=== PATIENT | male | born 1980 | race Caucasian/White ===

== ENCOUNTER 2017-02-06 02:54 | Emergency (ER) | payer BC ==
[2017-02-06 02:55] VITALS: BP 139/90; PULSE 73; RESP 16; TEMP 99; O2SAT 98
[2017-02-06 03:24] LABS: BLOOD, URINE NEG (NEG); GLUCOSE,URINE NEG (NEG); KETONE, URINE NEG (NEG); NITRITE,URINE NEG (NEG); PH, URINE 5.5 (5.0-8.5); URINE COLOR LIGHT-YELLOW (YELLW/STRAW)
[2017-02-06 03:25] LABS: COMMENT (UR) CULT NOT INDICATED; CULTURE IF INDICATED CULT NOT INDICATED
[2017-02-06] MEDS ORDERED: DICL75TA PO (03:37)
[2017-02-06] MEDS ORDERED: DOXY1CAP74 PO (03:37)
[2017-02-06] MEDS ORDERED: PAXI10TA2 PO (03:37)
[2017-02-06] MEDS ORDERED: DOXY100C PO (03:51)
[2017-02-06] MEDS ORDERED: DIAZ5 PO (03:51)
[2017-02-06] MEDS ORDERED: PHEN0.4T PO (03:51)
--- NOTE | 2017-02-06 03:52 | PD ---
HPI Chief Complaint: Complaint Time Seen by Provider: 03:37 Travel History International Travel<30 days: No Contact w/Intl Traveler<30days: No Traveled to known affect area: No History of Present Illness HPI Patient's 36 years old. He arrives complaining of urinary frequency and dysuria for about a day and a half. He states it has become quite painful for him such that he cannot find a position of comfort other than pacing around. He 's had no fever nausea vomiting or diarrhea. He denies abdominal pain. There is no testicular pain. Bowel movements have been normal. No blood in the urine or penile discharge reported. He reports unprotected sex with 2 partners over the last few months although thinks it's unlikely that he might actually have a UTI. He reports following up an urgent care clinic several days ago where he was pleased to have a UTI however urine culture came back negative. He completed a Bactrim course. He's been unable sleep on account of the discomfort. PFSH Past Medical History Medical History: Denies Significant Hx Diminished Hearing: No Past Surgical History Surgical History: No Previous Surgery Social History Alcohol Use: No (SOCIALLY ) Tobacco Use: No Substance Use: No Allergies-Medications (Allergen,Severity, Reaction): Coded Allergies: No Known Allergies (Unverified , 02/06/17) Reported Meds & Prescriptions Reported Meds & Active Scripts Active Valium (Diazepam) 5 Mg Tab 5 Mg PO HS PRN Doxycycline Hyclate 100 Mg Cap 100 Mg PO BID Pyridium (Phenazopyridine HCl) 100 Mg Tab 100 Mg PO Q8H PRN 2 Days Reported Diclofenac Sodium DR (Diclofenac Sodium) 75 Mg Tabdr 75 Mg PO BID Paxil (Paroxetine HCl) 10 Mg Tab 10 Mg PO DAILY Doxycycline 40 Mg Cap 100 Mg PO BID Review of Systems Except as stated in HPI: all other systems reviewed are Neg Physical Exam Narrative GENERAL: 36-year-old male well-nourished well-developed GENITOURINARY: There is no testicular mass tenderness. There is no penile discharge. Glans appears normal. There is no perineal tenderness or crepitus. SKIN: Focused skin assessment warm/dry. HEAD: Atraumatic. Normocephalic. EYES: Pupils equal and round. No scleral icterus. No injection or drainage. ENT: No nasal bleeding or discharge. Mucous membranes pink and moist. NECK: Trachea midline. No JVD. CARDIOVASCULAR: Regular rate and rhythm. No murmur appreciated. RESPIRATORY: No accessory muscle use. Clear to auscultation. Breath sounds equal bilaterally. GASTROINTESTINAL: Abdomen soft, non-tender, nondistended. Hepatic and splenic margins not palpable. No flank pain. MUSCULOSKELETAL: No obvious deformities. No clubbing. No cyanosis. No edema. NEUROLOGICAL: Awake and alert. No obvious cranial nerve deficits. Motor grossly within normal limits. Normal speech. PSYCHIATRIC: Appropriate mood and affect; insight and judgment normal. Data Data Last Documented VS Vital Signs Date Time Temp Pulse Resp B/P Pulse Ox O2 Delivery O2 Flow Rate FiO2 02/06/17 02:55 99.0 73 16 139/90 98 Room Air Vital signs reviewed Orders Ua Includes Microscopic (02/06/17 03:11) Urinalysis - C+S If Indicated (02/06/17 03:11) Phenazopyridine (Pyridium) (02/06/17 04:00) Ceftriaxone Inj (Rocephin Inj) (02/06/17 04:00) Doxycycline (Vibratab) (02/06/17 04:00) Lidocaine 1% Inj (50 Ml) (Xylocaine 1% I (02/06/17 04:00) Labs Laboratory Tests Test 02/06/17 03:09 Urine Color LIGHT-YELLOW Urine Turbidity CLEAR Urine pH 5.5 Urine Specific [place] 1.002 Urine Protein NEG mg/dL Urine Glucose (UA) NEG mg/dL Urine Ketones NEG mg/dL Urine Occult Blood NEG Urine Nitrite NEG Urine Bilirubin NEG Urine Urobilinogen LESS THAN 2.0 MG/DL Urine Leukocyte Esterase NEG Urine WBC LESS THAN 1 /hpf Microscopic Urinalysis Comment CULT NOT INDICATED MDM Medical Decision Making Medical Screen Exam Complete: Yes Emergency Medical Condition: Yes Medical Record Reviewed: Yes Differential Diagnosis Gonorrhea/chlamydia, epididymitis, prostatitis, UTI, urethritis Narrative Course Patient refused a rectal exam to assess for prostatitis. His urinalysis is unremarkable. Aseptic cystitis is a concern. Doxycycline should cover it. Of course prostatitis could be covered by doxycycline was well. Upon reassessing the patient after reviewing his medical reconciliation here reveals he started doxycycline today after visiting an urgent care office. Diagnosis Primary Impression: Dysuria Additional Impression: Insomnia Qualified Code: G47.00 - Insomnia, unspecified type Referrals: Adam Massey DO 2 days Additional Instructions: You have a choice when it comes to health care, and we are glad that you chose [facility]. Hopefully, we have met your expectations on today's visit. You are welcome to return to [facility] at any time, as we are committed to meeting the health care needs of our community. Med/Other Pt SpecificInfo: Prescription(s) given Scripts Diazepam (Valium)5 Mg Tab5 Mg PO HS PRN (INSOMNIA/MAY REPEAT X1 DOSE) #10 TAB Ref 0 Prov:Obed Mendoza MD 02/06/17 Doxycycline Hyclate 100 Mg [id number] Mg PO BID #14 CAP Ref 0 Prov:Obed Mendoza MD 02/06/17 Phenazopyridine (Pyridium)100 Mg [id number] Mg PO Q8H PRN (DYSURIA) 2 Days Ref 0 Prov:Obed Mendoza MD 02/06/17 Disposition: 01 DISCHARGE HOME Condition: Stable Obed Mendoza MD Feb 06, 2017 03:52
[2017-02-06] MEDS ORDERED: DOXYCYCLINE HYCLATE 100 MG TAB PO ONE (04:00)
[2017-02-06] MEDS ORDERED: cefTRIAXone 250 MG VIAL IM ONE (04:00)
[2017-02-06] MEDS ORDERED: LIDOCAINE HCL 1% 50 ML VIAL XX ONE (04:00)
[2017-02-06] MEDS ORDERED: PHENAZOPYRIDINE HCL 200 MG TAB PO ONE (04:00)
[2017-02-06] MEDS ORDERED: ACETAMINOPHEN/HYDROcodone 325 MG/5 MG TAB PO ONE (04:30)
== END 2017-02-06 04:52 | disposition home or self-care (01) ==
LOC: NEPE 02:54
DX: R30.0 Dysuria (principal); G47.00 Insomnia, unspecified
CPT/HCPCS: 81001; 96372; 99284; J0696